=== PATIENT | male | born 1965 | race African-American/Black ===

== ENCOUNTER 2016-09-05 13:50 | Emergency (ER) | payer SELFPAY ==
[~2016-09-05] VITALS: Ht 180.3 cm; Wt 149.7 kg
[~2016-09-05 13:50] MED LIST: AMOXICILLIN500 MG ORAL; HYDROCHLOROTHIA25 MG ORAL; METFORMIN HCL500 M1 ORAL; NKM; NORCO 5-325 TA1 EACH ORAL; VICODIN 5-3001 EACH ORAL; VICODIN 5-5001 EACH PO
[2016-09-05] MEDS ORDERED: Methocarbamol 750mg tab ORAL ONE (14:30)
[2016-09-05] MEDS ORDERED: Ketorolac 30mg Inj IM ONE (14:30)
[2016-09-05] MEDS ORDERED: IBUPROFEN600 MG ORAL (14:41)
[2016-09-05] MEDS ORDERED: ROBAXIN-750750 MG PO (14:41)
[2016-09-05 15:00] VITALS: BP 128/88
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
== END 2016-09-05 15:03 | disposition home or self-care (01) ==
LOC: EMR 14:05
DX: S16.1XXA Strain of muscle, fascia and tendon at neck level, initial encounter (principal); V43.52XA Car driver injured in collision with other type car in traffic accident, initial encounter; Y92.410 Unspecified street and highway as the place of occurrence of the external cause; E11.9 Type 2 diabetes mellitus without complications
CPT/HCPCS: 96372; 99284; J1885